=== PATIENT | female | born 1945 | race Caucasian/White ===

== ENCOUNTER → 2016-07-17 | Outpatient (CLI) | payer OTHER, MEDICARE ==
[~2016-07-17] MED LIST: ALEVE LIQUID G220 MG; ALEVE220 M2 PO; ALLERGY RELIEF10 M1; AMBIEN10 MG PO; AMBIEN5 MG PO; ANTIVERT25 MG PO; ASPIR 8181 M1 PO; ASPIR-LOW81 MG PO; ASPIRIN325 MG PO; ATENOLOL25 M1 PO; ATIVAN2 MG PO; BACIGUENT28.4 GM TP; BACTRIM,SEPT1 TABLET PO; CAL-MAG-ZINC T1 EACH PO; CATAPRES0.1 MG PO; CHEST CONGESTI400 MG PO; CHLORDIAZEPOXID25 MG PO; CIPRO500 MG PO; CLARITIN10 M3 PO; CLONIDINE1 EACH TD; CO Q-1010 MG PO; COLACE100 MG PO; Cipro PO; Claritin,Alavart PO; Cyclobenzaprine Hcl PO; DESYREL 150 MG150 MG PO; DESYREL300 MG PO; DIAZEPAM5 MG PO; DILAUDID2 MG PO; DITROPAN5 MG PO; Dilaudid PO; Ecotrin PO; FLEXERIL10 MG PO; FLONASE16 G1 BOTH NARES; FLUTICASONE PRO16 GM BOTH NARES; FORTAMET1000 M1 PO; FORTAMET500 M1 PO; Flonase BOTH NARES; GABAPENTIN300 MG PO; GLUCOPHAGE XR,500 MG PO; GLUCOPHAGE XR1000 MG PO; GLUCOPHAGE500 MG PO; GLUMETZA500 M1 PO; GUAIFENESIN WI120 ML PO; HALDOL5 MG PO; HYDROCHLOROTH12.5 M3 PO; HYDROXYZINE PAM50 MG PO; IRON; Imodium PO; KADIAN10 MG PO; LAMICTAL25 MG PO; LEVAQUIN500 MG PO; LIBRIUM25 MG PO; LORATADINE10 M2 PO; LYRICA100 MG PO; LYRICA50 MG PO; MACROBID100 MG PO; METFORMIN HCL500 M1 PO; METFORMIN HCL500 MG PO; METHOCARBAMOL750 MG PO; MICROZIDE12.5 M1 PO; MIRTAZAPINE15 MG PO; MIRTAZAPINE30 MG PO; MOBIC15 MG PO; MS CONTIN,ORAMO15 M1 PO; MULTI-DAY PLUS1 EACH PO; MULTIVITAMIN; MULTIVITAMIN1 EAC1 PO; MULTIVITAMIN1 EAC2 PO; MYCOSTATIN5 ML PO; NEURONTIN300 MG PO; NEURONTIN400 MG PO; NEURONTIN600 MG PO; NEURONTIN800 MG PO; NITROFURANTOIN100 M3 PO; NITROSTAT0.4 MG SL; NORCO 5/3251 TABLET PO; OMEGA 3 1,0001 EACH PO; OXYBUTYNIN CHLOR5 MG PO; PAROXETINE HCL20 MG PO; PAXIL30 MG PO; PAXIL40 MG PO; PERCOCET 10/1 TABLET PO; PERCOCET 5/31 TABLET PO; PHENERGAN12.5 M1 PO; POTASSIUM GLUCONATE; POTASSIUM-9999 MG PO; PREDNISONE10 MG PO; Paxil PO; REMERON15 M2 PO; REMERON30 M2 PO; SENNA PLUS TAB1 EACH PO; SENOKOT,SENN1 TABLE1 PO; SEROQUEL12.5 MG PO; SEROQUEL50 MG PO; TESSALON PERLE100 MG PO; THERAGRAN1 TABLET PO; THIAMINE HCL100 MG PO; TORADOL10 MG PO; TRAMADOL HCL50 MG PO; TRAZODONE HCL150 MG PO; TRILEPTAL300 MG PO; TYLENOL REGULA325 MG PO; TYLENOL650 MG PR; ULTRAM50 MG PO; VALIUM5 MG PO; VICODIN,LORT1 TABLET PO; VISINE TEARS DR30 ML BOTH EYES; VITAMIN C1000 M3 PO; VITAMIN D1000 UNIT PO; VITAMIN D5000 UNIT PO; Vicodin,Lortab 5/500 PO; XANAX0.5 MG PO; ZITHROMAX Z-PA250 MG PO; ZOFRAN ODT4 MG PO; ZOFRAN ODT8 MG PO; [UNRECOGNIZED DRUG - OTHER]; paxil
== END | disposition home or self-care (01) ==
DX: M17.11 Unilateral primary osteoarthritis, right knee (principal); M25.561 Pain in right knee; M25.562 Pain in left knee; R26.2 Difficulty in walking, not elsewhere classified; M62.89 Other specified disorders of muscle
CPT/HCPCS: 97110 GP; 97150 GO; 97161 GP; 97165 GO; G8978 GP; G8979 GP; G8980 GP; G8987 GO; G8988 GO; G8989 GO